=== PATIENT | female | born 2000 | race Caucasian/White ===

== ENCOUNTER 2024-04-03 22:28 | Emergency (ER) | payer OTHER ==
[~2024-04-03] VITALS: Ht 157.5 cm; Wt 67.0 kg
[2024-04-03 22:55] VITALS: O2SAT 96
[2024-04-03] MEDS ORDERED: CEPH500C2 MT (23:14)
[2024-04-03 23:33] VITALS: BP 106/59; PULSE 62; RESP 18; TEMP 97.8
== END 2024-04-03 23:35 | disposition home or self-care (01) ==
LOC: ER 22:28
DX: L60.0 Ingrowing nail (principal); J45.909 Unspecified asthma, uncomplicated
CPT/HCPCS: 99283

== ENCOUNTER 2024-12-18 08:59 | Emergency (ER) | payer OTHER ==
[~2024-12-18] VITALS: Ht 157.5 cm; Wt 68.0 kg
[~2024-12-18 08:59] MED LIST: CEPH500C2 MT
[2024-12-18 09:08] VITALS: O2SAT 100
[2024-12-18 09:49] LABS: BASOPHILS % 0.3 % (0.0-2.0); EOSINOPHILS % 0.7 % (0.0-5.0); HEMATOCRIT. 38.2 % (36.0-48.0); HEMOGLOBIN. 12.4 g/dL (12.0-16.0); LYMPHOCYTES % 12.7 % (20.0-50.0); MEAN CORPUSCULAR HGB CONC 32.4 g/dL (31.0-37.0); MEAN CORPUSCULAR VOLUME 86.5 fL (81.0-99.0); MEAN PLATELET VOLUME 7.7 fl (7.4-10.4); MONOCYTES % 4.2 % (2.0-8.0); NEUTROPHILS % 82.1 % (40.0-76.0); PLATELET 353 x1000/uL (130-400); RED BLOOD CELL COUNT 4.42 mill/uL (4.2-5.4); RED CELL DISTRIBUTION WIDTH 13.6 % (11.6-14.6); WHITE BLOOD COUNT 11.5 x1000/uL (4.5-11.0)
[2024-12-18 09:52] LABS: CHLORIDE 106 mEq/L (98-107); POTASSIUM 4.2 mEq/L (3.5-5.1)
[2024-12-18 09:53] LABS: SODIUM 138 mEq/L (136-145)
[2024-12-18 09:54] LABS: CALCIUM 9.4 mg/dL (8.7-10.4); CARBON DIOXIDE 24 mEq/L (21-32)
[2024-12-18 09:59] LABS: CREATININE 0.7 mg/dL (0.6-1.0); GLUCOSE 122 mg/dL (70-105); UREA NITROGEN BLOOD 11 mg/dL (9-23)
[2024-12-18 10:01] LABS: ALANINE AMINOTRANSFERASE 72 IU/L (10-49); ALBUMIN 4.6 g/dL (3.2-4.8); ASPARTATE AMINOTRANSFERASE 33 IU/L (<34)
[2024-12-18 10:02] LABS: BILIRUBIN TOTAL 0.3 mg/dL (0.1-1.0); PROTEIN TOTAL 7.9 g/dL (6.0-8.3)
[2024-12-18 10:20] LABS: BILIRUBIN DIRECT < 0.1 mg/dL (<=3.0)
[2024-12-18] MEDS: ONDANSETRON HCL 4MG/2ML INJ IV STA (11:31)
[2024-12-18] MEDS: KETOROLAC 30MG/ML VIAL IV STA (11:31)
[2024-12-18] MEDS: SODIUM CHLORIDE 0.9% 1,000 ML IV ONE (11:31)
[2024-12-18 11:36] LABS: CLARITY URINE CLEAR (CLEAR); COLOR URINE YELLOW (YELLOW); GLUCOSE URINE NEGATIVE (NEGATIVE); KETONES URINE NEGATIVE (NEGATIVE); LEUKOCYTE ESTERASE URINE NEGATIVE (NEGATIVE); NITRITE URINE NEGATIVE (NEGATIVE); OCCULT BLOOD URINE NEGATIVE (NEGATIVE); PROTEIN URINE TRACE (NEGATIVE); SPECIFIC GRAVITY URINE 1.034 (1.005-1.030)
[2024-12-18 11:48] LABS: BACTERIA URINE 1+; SQUAMOUS EPITHELIAL CELL URINE 1+ /lpf (RARE/1+); WBC URINE 0-2 /hpf (0-2); YEAST URINE NONE SEEN
[2024-12-18] MEDS ORDERED: CEPH500C2 MT (13:38)
[2024-12-18] MEDS ORDERED: ONDA4TAB50 PO (13:38)
[2024-12-18] MEDS ORDERED: NAPR-681 PO (13:38)
[2024-12-18 13:55] VITALS: BP 99/66; PULSE 69; RESP 18; TEMP 37; O2SAT 100
== END 2024-12-18 13:55 | disposition home or self-care (01) ==
LOC: ER 08:59
DX: R82.71 Bacteriuria (principal)
CPT/HCPCS: 80076; 80048; 81003; 83690; 85025; 36415; 74176; 96361; 96374; 96375; 99285; J1885; J2405; J7030; Z7610